=== PATIENT | female | born 1995 | race African-American/Black ===

== ENCOUNTER 2019-09-21 06:59 | Inpatient (IN) ==
[2019-09-21 07:37] LABS: Apearance,Urine Slightly Hazy (Clear); Bacteria,Urine Occasional /HPF (Few); Bilirubin,Urine Negative (Negative); Blood, Urine Negative (Negative); Glucose,Urine (UA) Negative (Negative); Ketones,Urine Negative (Negative); Mucus,Urine Occasional /LPF (Occasional); Nitrite,Urine Negative (Negative); Protein,Urine Negative; RBC,Urine 3 /HPF (0-4); Squamous Epithelial Cell,Urine Few /HPF (0-10); Urine Color Yellow (Yellow); Urine Specific Gravity 1.012 (1.001-1.035); Urine Urobilinogen < 2.0 EU/DL (0.2-1.0); WBC,Urine 8 /HPF (0-6)
[2019-09-21] MEDS ORDERED: ONDANSETRON 4 MG/2 ML VIAL IV PRN (11:13)
[2019-09-21] MEDS ORDERED: MEPERIDINE 50 MG/1 ML VIAL IV PRN (11:13)
[2019-09-21] MEDS ORDERED: BUTORPHANOL 2 MG/ML VIAL IV PRN (11:13)
[2019-09-21] MEDS ORDERED: AMPICILLIN INJ 2,000 MG in SODIUM CHLORIDE 0.9% 100 ML IV ONE (11:16)
[2019-09-21] MEDS ORDERED: OXYTOCIN/LR 20 UNIT/1,000 ML BAG IV SCH (11:30)
[2019-09-21] MEDS ORDERED: LACTATED RINGERS 1,000 ML IV SCH (11:30)
[2019-09-21 11:45] LABS: Basophils % 0.1 % (0.0-0.8); Eosinophils # 0.1 10*3/uL (0.0-0.87); Eosinophils % 0.6 % (0.00-10.9); Hematocrit 27.2 VOL% (35.7-47.0); Hemoglobin 7.9 GM/DL (12.0-16.0); Immature Granulocytes % 0.6 %; Immature Granulocytes Absolute 0.05 #; Lymphocytes # 1.3 10*3/uL (1.4-4.0); Lymphocytes % 16.1 % (21.3-54.2); Mean Platelet Volume 12.2 FL (9.6-12.0); Monocytes % 5.2 % (1.7-12.7); Neutrophils % 77.4 % (38.7-73.9); Platelet Count 140 T/CUMM (130-400); Red Blood Count 3.36 MC/CUMM (3.8-5.5); Red Cell Distribution Width 15.4 % (9.3-17.3); White Blood Count 8.3 T/CUMM (4-12)
[2019-09-21 12:01] LABS: Alanine Aminotransferase 19 U/L (13-56); Albumin 2.6 G/DL (3.4-5.0); Alkaline Phosphatase 152 U/L (45-117); Aspartate Amino Transferase 16 U/L (0-37); Bilirubin,Total < 0.39 MG/DL (0.2-1.0); Blood Urea Nitrogen 5 MG/DL (7-18); Calcium 8.4 MG/DL (8.5-10.1); Estimated Glom Filtration Rate 136 ML/MIN; Glucose 79 MG/DL (74-106); Osmolality,Calculated 268.8 MOS/KG (273-304); Total Protein 6.5 G/DL (6.4-8.3)
[2019-09-21] MEDS ORDERED: LACTATED RINGERS 1,000 ML IV ONE (15:12)
[2019-09-21] MEDS ORDERED: FAMOTIDINE 20 MG/2 ML VIAL IV ONE (15:12)
[2019-09-21] MEDS ORDERED: CITRIC ACID/SODIUM CITRATE 30 ML UDCUP PO ONE (15:12)
[2019-09-21] MEDS ORDERED: ePHEDrine 50 MG/ML AMP IV PRN (15:13)
[2019-09-21] MEDS ORDERED: PROMETHAZINE 25 MG/1 ML VIAL IM ONE (15:13)
[2019-09-21] MEDS ORDERED: hydrOXYzine HCL 25 MG/1 ML VIAL IM PRN (15:13)
[2019-09-21] MEDS ORDERED: NALOXONE 0.4 MG/ML VIAL IV PRN (15:13)
[2019-09-21] MEDS ORDERED: diphenhydrAMINE 50 MG/1 ML VIAL IV PRN ×2 (15:13)
[2019-09-21] MEDS ORDERED: fentaNYL 2 MCG/ROPIV 0.2% EPID 100 ML EPIDURAL SCH (15:30)
[2019-09-21] MEDS ORDERED: AMPICILLIN INJ 1,000 MG in SODIUM CHLORIDE 0.9% 100 ML IV SCH (15:30)
[2019-09-21 19:14] LABS: Cord Venous Blood PCO2 50.6 MMHG
[2019-09-21 19:15] LABS: Cord Venous Blood HCO3 25.2 MMOL/L
[2019-09-21] MEDS ORDERED: ACETAMINOPHEN 325 MG TABLET PO PRN (20:57)
[2019-09-21] MEDS ORDERED: RHO(D) IMMUNE GLOBULIN 300 MCG SYRINGE IM ONE (20:57)
[2019-09-21] MEDS ORDERED: WITCH HAZEL PADS 100/JAR TOP PRN (20:57)
[2019-09-21] MEDS ORDERED: BISACODYL 10 MG SUPP RECTAL PRN (20:57)
[2019-09-21] MEDS ORDERED: DIPH/TET/ACEL PERT BOOSTER VACCINE 0.5 ML VIAL IM ONE (20:57)
[2019-09-21] MEDS ORDERED: BENZOCAINE 20%/MENTHOL 0.5% SPRAY 56 GM CAN TOP PRN (20:57)
[2019-09-21] MEDS ORDERED: LANOLIN 50% CREAM 0.3 OZ TUBE TOP PRN (20:57)
[2019-09-21] MEDS ORDERED: HYDROCORTISONE 2.5% RECTAL CREAM 30 GM TUBE TOP PRN (20:57)
[2019-09-21] MEDS ORDERED: oxyCODONE/ACETAMINOPHEN 5-325 MG TABLET PO PRN ×2 (20:57)
[2019-09-21] MEDS ORDERED: MEASLES/MUMPS/RUBELLA VACCINE 0.5 ML VIAL SUBCUT ONE (20:57)
[2019-09-21] MEDS ORDERED: OXYTOCIN/LR 20 UNIT/1,000 ML BAG IV ONE (20:57)
[2019-09-21] MEDS: IBUPROFEN 800 MG TABLET PO PRN (21:03)
[2019-09-22] MEDS: DOCUSATE SODIUM 100 MG CAPSULE PO SCH ×3 (01:20→21:34)
[2019-09-22 06:36] LABS: Basophils % 0.2 % (0.0-0.8); Eosinophils # 0.1 10*3/uL (0.0-0.87); Eosinophils % 0.8 % (0.00-10.9); Hematocrit 26.9 VOL% (35.7-47.0); Hemoglobin 7.9 GM/DL (12.0-16.0); Immature Granulocytes % 0.4 %; Immature Granulocytes Absolute 0.04 #; Lymphocytes # 2.1 10*3/uL (1.4-4.0); Lymphocytes % 20.7 % (21.3-54.2); Mean Corpuscular HGB Conc 29.4 GM/DL (32-36); Mean Corpuscular Volume 80.1 FL (87-102); Neutrophils % 71.9 % (38.7-73.9); Platelet Count 141 T/CUMM (130-400); Red Blood Count 3.36 MC/CUMM (3.8-5.5); Red Cell Distribution Width 15.3 % (9.3-17.3); White Blood Count 10.1 T/CUMM (4-12)
[2019-09-22] MEDS: FERROUS SULFATE 325 MG TABLET PO SCH ×2 (08:30→21:34)
[2019-09-22] MEDS: IBUPROFEN 800 MG TABLET PO PRN ×2 (08:30→17:15)
[2019-09-23] MEDS: IBUPROFEN 800 MG TABLET PO PRN (02:03)
[2019-09-23] MEDS: DOCUSATE SODIUM 100 MG CAPSULE PO SCH (08:20)
[2019-09-23] MEDS: FERROUS SULFATE 325 MG TABLET PO SCH (08:20)
[2019-09-23 12:50] VITALS: BP 137/78
== END 2019-09-23 13:55 | disposition home or self-care (01) | DRG 560 ==
LOC: N.LDOUT 06:59 → N.LD 07:01 → N.OB 22:12
PROVIDERS: ADMIT Obstetrics & Gynecology; ATTEND Obstetrics & Gynecology